=== PATIENT | male | born 1985 | race Caucasian/White ===

== ENCOUNTER 2021-03-15 15:05 | Emergency (ER) | payer OTHER ==
[~2021-03-15 15:05] MED LIST: BENTYL10 MG PO; ZOFRAN4 MG PO
== END 2021-03-15 18:16 | disposition left against medical advice (07) ==
LOC: FER 15:05
DX: U07.1 COVID-19 (principal); I10 Essential (primary) hypertension; E10.9 Type 1 diabetes mellitus without complications; F17.210 Nicotine dependence, cigarettes, uncomplicated; Z88.5 Allergy status to narcotic agent; Z88.0 Allergy status to penicillin; Z88.1 Allergy status to other antibiotic agents; Z88.6 Allergy status to analgesic agent; Z53.8 Procedure and treatment not carried out for other reasons
CPT/HCPCS: 71046